=== PATIENT | female | born 1950 | race African-American/Black ===

== ENCOUNTER 2021-06-13 11:54 | Emergency (ER) | payer MEDICARE, MEDICAID ==
[~2021-06-13] VITALS: Ht 170.2 cm; Wt 73.0 kg
[2021-06-13 12:36] LABS: HEMATOCRIT. 44.2 % (36.0-48.0); HEMOGLOBIN. 14.2 g/dL (12.0-16.0); RED BLOOD CELL COUNT 5.26 mill/uL (4.2-5.4); RED CELL DISTRIBUTION WIDTH 14.1 % (11.6-14.6)
[2021-06-13] MEDS ORDERED: SODIUM CHLORIDE 0.9% 1,000 ML IV ONE ×2 (12:45→18:45)
[2021-06-13 12:46] LABS: CHLORIDE 97 mEq/L (98-107)
[2021-06-13 13:16] LABS: PLATELET ESTIMATE NORMAL
[2021-06-13 13:18] LABS: PLATELET 267 x1000/uL (130-400)
[2021-06-13] MEDS ORDERED: ONDANSETRON HCL 4MG/2ML INJ IV ONE (15:15)
[2021-06-13] MEDS ORDERED: KETOROLAC 30MG/ML VIAL IV ONE (15:45)
[2021-06-13] MEDS ORDERED: IOHEXOL-300 100 ML BOTTLE ONE (17:02)
[2021-06-13] MEDS ORDERED: METOCLOPRAMIDE HCL 10MG/2ML VIAL IV ONE (18:45)
[2021-06-13] MEDS ORDERED: CEFTRIAXONE 1 G PREMIX 50 ML IV NR (20:00)
[2021-06-13 21:41] LABS: CLARITY URINE CLEAR (CLEAR); COLOR URINE ORANGE (YELLOW); KETONES URINE 1+ (NEGATIVE); LEUKOCYTE ESTERASE URINE TRACE (NEGATIVE); NITRITE URINE POSITIVE (NEGATIVE); OCCULT BLOOD URINE 3+ (NEGATIVE); PROTEIN URINE 2+ (NEGATIVE); SPECIFIC GRAVITY URINE >1.040 (1.005-1.030)
[2021-06-13 21:57] LABS: *AMPHETAMINES SCREEN URINE NEGATIVE (NEGATIVE); *BARBITURATES SCREEN URINE NEGATIVE (NEGATIVE); *BENZODIAZEPINES SCREEN URINE PRESUMTIVE POSITIVE (NEGATIVE); *COCAINE SCREEN URINE NEGATIVE (NEGATIVE); METHADONE URINE SCREEN NEGATIVE (NEGATIVE)
[2021-06-13 21:58] LABS: CANNABINOID URINE SCREEN PRESUMTIVE POSITIVE (NEGATIVE); OPIATES URINE SCREEN NEGATIVE (NEGATIVE); PHENCYCLIDINE URINE SCREEN NEGATIVE (NEGATIVE)
[2021-06-13 22:58] VITALS: BP 176/106
== END 2021-06-13 23:26 | disposition short-term general hospital (02) ==
LOC: ER 12:42 → CANBEDREQ 06-14 02:23
DX: A41.9 Sepsis, unspecified organism (principal); N10 Acute pyelonephritis; I10 Essential (primary) hypertension; J45.909 Unspecified asthma, uncomplicated; Z20.822 Contact with and (suspected) exposure to COVID-19; Z98.890 Other specified postprocedural states
CPT/HCPCS: 36415; 74177; 80053; 80305; 81003; 83605; 83690; 84484; 85025; 87040; 87077; 87186; 87426; 96361; 96365; 96375; 99285; J0696; J1885; J2405; J2765; J7030; Q9967